=== PATIENT | female | born 1940 | race Caucasian/White ===

== ENCOUNTER 2016-08-01 17:14 | Emergency (ER) | payer MEDICAID ==
[~2016-08-01] VITALS: Wt 86.2 kg
[~2016-08-01 17:14] MED LIST: ACULAR 3ML 3 ML5 ML; AMBIEN10 MG PO; ARICEPT10 MG PEG; ASPIRIN81 M1 PEG; ATENOLOL50 MG PEG; ATIVAN1 MG PEG; ATIVAN1 MG PO; BACTRIM DS 8001 TA1 PO; BUPROPION HCL150 MG PO; CALCIUM 500 W/V1 TAB PO; CARMEX T; CEFTIN250 MG GT; CEFTIN250 MG PEG; CELEBREX200 MG PO; CELEXA40 MG PEG; CELEXA40 MG PO; CIPRO500 MG PEG; CITALOPRAM40 MG PO; COLACE100 MG PO; CYMBALTA30 M1 PO; DARVOCET N 1001 TAB PO; DESYREL50 MG PEG; DIFLUCAN100 MG PO; DRISDOL50000 IU PO; DURAGESIC25 MCG/HR TD; Depakote Sprin125 MG PO; ECOTRIN ADULT L81 MG PO; EXELON3 MG PO; FIBERSOURCE PO; FOLIC ACID1 MG PEG; FOLIC ACID1 MG PO; FROVA2.5 MG PO; HYDROCHLOROTH12.5 MG PEG; K-DUR20 MEQ PO; K-LOR20 MEQ PO; LEVOTHYROXIN0.075 MG PEG; LISINOPRIL10 MG PEG; LOTRISONE 0.05%1 CRE TP; NAMENDA10 MG PEG; NAMENDA10 MG PO; NAMENDA5 M1 PO; NATURE'S BLEND F1 MG PO; NUED1CAP PO; OCUFLOX 5 ML5 M1; PLAVIX75 MG PEG; PLAVIX75 MG PO; PRAVACHOL40 MG PEG; PRAVACHOL40 MG PO; SYNTHROID0.075 MG PO; Synthroid,Lev125 MCG PO; TRAZADONE HYDR100 MG PO; TRAZODONE50 MG PEG; TYLENOL ARTHRI650 MG GT; WATER PEG; WELLBUTRIN SR150 MG PEG; ZOCOR40 MG PEG; [UNRECOGNIZED DRUG - CODE] PEG; [UNRECOGNIZED DRUG - OTHER]
[2016-08-01 17:43] LABS: BILIRUBIN NEGATIVE (NEGATIVE); BLOOD 3+ (NEGATIVE); CLARITY SL CLOUDY (CLEAR); COLOR YELLOW (YELLOW); GLUCOSE NEGATIVE (NEGATIVE); KETONE NEGATIVE (NEGATIVE); LEUKO ESTERASE 3+ (NEGATIVE); NITRITE POSITIVE (NEGATIVE); PH 6.5 (5.0-9.0); PROTEIN 2+ (NEGATIVE); UROBILINOGEN 0.2 E.U./dl (0.2-1.0)
[2016-08-01 18:08] LABS: BASO # 0.1 10*3/uL (0.0-0.1); BASO % 0.8 % (0.0-1.0); EOS # 0.1 10*3/uL (0.0-0.4); HEMATOCRIT 36.3 % (37.0-47.0); HEMOGLOBIN 11.3 g/dl (12.0-16.0); LYMPH # 1.3 10*3/uL (1.3-4.4); LYMPH % 19.7 % (27.0-41.0); MEAN CELL VOLUME 95.8 fl (81.0-99.0); MEAN CORPUSCULAR HGB 29.8 pg (27.0-31.0); MEAN CORPUSCULAR HGB CONC 31.1 g/dl (33.0-37.0); MEAN PLATELET VOLUME 8.9 fl (9.6-12.3); MONO % 15.4 % (3.0-9.0); NEUT # 3.9 10*3/uL (2.3-7.9); NEUT % 61.5 % (47.0-73.0); PLATELET COUNT AUTOMATED 271 10*3/uL (130-400); RED BLOOD COUNT 3.79 10*6/uL (4.10-5.10); RED CELL DISTRI WIDTH 14.9 % (0-14.5); WHITE BLOOD COUNT 6.4 10*3/uL (4.8-10.8)
[2016-08-01 18:20] LABS: RBC TNTC rbc/hpf (0-2); URINE REFLEX COMMENT YES (NO)
[2016-08-01 18:37] LABS: POTASSIUM 4.2 mmol/L (3.5-5.1)
[2016-08-01 18:38] LABS: ALBUMIN 2.4 gm/dl (3.1-4.5); BILIRUBIN, TOTAL 0.1 mg/dl (0.2-1.0)
[2016-08-01] MEDS ORDERED: MACROBID100 M1 PO (20:02)
== END 2016-08-01 20:17 | disposition other institution (70) ==
LOC: ED 17:14
PROVIDERS: Physician Assistant
DX: N30.01 Acute cystitis with hematuria (principal); Z86.73 Personal history of transient ischemic attack (TIA), and cerebral infarction without residual deficits; Z79.82 Long term (current) use of aspirin; Z79.899 Other long term (current) drug therapy; Z88.0 Allergy status to penicillin

== ENCOUNTER → 2016-09-09 | Outpatient (CLI) | payer MEDICAID ==
[~2016-09-09] MED LIST changes: +MACROBID100 M1 PO
== END | disposition home or self-care (01) ==
LOC: ORTHO 03:21
DX: M16.11 Unilateral primary osteoarthritis, right hip (principal)